=== PATIENT | female | born 1955 | race Caucasian/White ===

== ENCOUNTER → 2017-02-26 | Outpatient (CLI) | payer OTHER ==
[~2017-02-26] VITALS: Ht 160 cm; Wt 71.2 kg
[~2017-02-26] MED LIST: NEXIUM40 MG PO; RELPAX40 MG PO; SYNTHROID125 MCG PO; WELLBUTRIN XL300 MG PO; ZOLOFT50 MG PO
[2017-02-26 10:10] VITALS: BP 134/72
[2017-02-26 10:55] VITALS: BP 144/69
== END | disposition home or self-care (01) ==
LOC: CAT 09:07
DX: M71.38 Other bursal cyst, other site (principal); M54.42 Lumbago with sciatica, left side; M47.896 Other spondylosis, lumbar region; E03.9 Hypothyroidism, unspecified; K21.9 Gastro-esophageal reflux disease without esophagitis; Z90.49 Acquired absence of other specified parts of digestive tract; Z98.890 Other specified postprocedural states